=== PATIENT | female | born 1995 | race Caucasian/White ===

== ENCOUNTER 2021-12-25 09:24 | Emergency (ER) | payer BC ==
[2021-12-25] MEDS ORDERED: Ondansetron 4 MG/2 ML SDV IVPUSH ONE (10:23)
[2021-12-25] MEDS ORDERED: Sodium Chloride 0.9% 10 ML Syringe FLUSH PRN (10:23)
[2021-12-25] MEDS ORDERED: Sodium Chloride 0.9% 1,000 ML IV SCH (10:30)
== END 2021-12-25 12:45 | disposition home or self-care (01) ==
LOC: JD.ED 09:24
DX: O98.513 Other viral diseases complicating pregnancy, third trimester (principal); U07.1 COVID-19; Z3A.35 35 weeks gestation of pregnancy
CPT/HCPCS: 36415; 80053; 85025; 85379; 86140; 96374; 99284; J2405; J7030

== ENCOUNTER 2022-01-06 22:35 | Observation (INO) | payer BC | END 2022-01-06 23:45 | disposition home or self-care (01) | LOC: JD.OB 22:35 | PROVIDERS: ADMIT Obstetrics & Gynecology; ATTEND Obstetrics & Gynecology | DX: O47.1 False labor at or after 37 completed weeks of gestation (principal); O99.613 Diseases of the digestive system complicating pregnancy, third trimester; Z3A.30 30 weeks gestation of pregnancy | CPT/HCPCS: 59025; 84112 ==

== ENCOUNTER 2022-01-23 06:32 | Inpatient (IN) | payer BC ==
[~2022-01-23 06:32] MED LIST: Bupivacaine 0.25% 10 ML SDV ONE
[2022-01-23] MEDS ORDERED: Nalbuphine 10 MG/1 ML Vial IVPUSH PRN (07:09)
[2022-01-23] MEDS ORDERED: Ondansetron 4 MG/2 ML SDV IVPUSH PRN (07:09)
[2022-01-23] MEDS ORDERED: Sodium Chloride 0.9% 10 ML Syringe FLUSH PRN (07:09)
[2022-01-23] MEDS ORDERED: Acetaminophen 325 MG Tab PO PRN (07:09)
[2022-01-23] MEDS ORDERED: Oxytocin/Lactated Ringers 10 UNIT/1,000 ML BAG IV SCH ×2 (07:15)
[2022-01-23] MEDS: Lactated Ringers 1,000 ML IV SCH ×3 (08:11→14:01)
[2022-01-23] MEDS ORDERED: Sodium Chloride 0.9% 10 ML Syringe FLUSH SCH (09:00)
[2022-01-23] MEDS ORDERED: ePHEDrine 50 MG/ML SDV IVPUSH PRN (09:44)
[2022-01-23] MEDS ORDERED: fentaNYL 100 MCG/2 ML SDV EPIDUR PRN (09:44)
[2022-01-23] MEDS ORDERED: diphenhydrAMINE 50 MG/ML SDV IVPUSH PRN (09:44)
[2022-01-23] MEDS ORDERED: Bupivacaine/fentaNYL/NS 100 ML Bag EPIDUR PRN (09:44)
[2022-01-23] MEDS ORDERED: fentaNYL 100 MCG/2 ML SDV ONE (09:54)
[2022-01-23] MEDS ORDERED: Witch Hazel Medicated Pads 40/Jar TOP PRN (16:42)
[2022-01-23] MEDS ORDERED: Benzocaine/Menthol 20%-0.5% Spray 78 GM Cannister TOP PRN (16:42)
[2022-01-23] MEDS ORDERED: Docusate Sodium 100 MG Cap PO PRN (16:42)
[2022-01-23] MEDS: Acetaminophen 325 MG Tab PO PRN (19:26)
[2022-01-23] MEDS: Ibuprofen 600 MG Tab PO PRN (21:37)
[2022-01-24] MEDS: Acetaminophen 325 MG Tab PO PRN ×2 (02:22→10:14)
[2022-01-24] MEDS: Ibuprofen 600 MG Tab PO PRN ×2 (06:09→14:01)
[2022-01-24] MEDS ORDERED: Measles, Mumps & Rubella Vaccine 0.5 ML SDV SUBCUT ONE (16:00)
== END 2022-01-24 17:10 | disposition home or self-care (01) | DRG 560 ==
LOC: JD.OB 06:32 → OBSVTOIN 15:42 → JD.OB 15:43
PROVIDERS: ADMIT Obstetrics & Gynecology; ATTEND Obstetrics & Gynecology
PROC: 10E0XZZ Delivery of Products of Conception, External Approach (ICD-10-PCS; principal; 2022-01-23)
PROC: 10907ZC Drainage of Amniotic Fluid, Therapeutic from Products of Conception, Via Natural or Artificial Opening (ICD-10-PCS; 2022-01-23)
PROC: 3E0R3BZ Introduction of Anesthetic Agent into Spinal Canal, Percutaneous Approach (ICD-10-PCS; 2022-01-23)
PROC: 00HU33Z Insertion of Infusion Device into Spinal Canal, Percutaneous Approach (ICD-10-PCS; 2022-01-23)
DX: O99.214 Obesity complicating childbirth (principal); O69.81X0 Labor and delivery complicated by cord around neck, without compression, not applicable or unspecified; Z3A.39 39 weeks gestation of pregnancy; Z37.0 Single live birth; Z86.16 Personal history of COVID-19; E66.9 Obesity, unspecified; O98.32 Other infections with a predominantly sexual mode of transmission complicating childbirth
CPT/HCPCS: 36415; 51702; 59025; 59409; 85027; 86850; 86900; 86901; 90471; 90707; A9270-GY; J2590; J3010; J3490; J7120

== ENCOUNTER 2022-04-12 20:34 | Observation (INO) | payer BC ==
[2022-04-12] MEDS ORDERED: Ketorolac 15 MG/ML SDV IM ONE (21:42)
[2022-04-12] MEDS ORDERED: Iopamidol 612 MG/ML 100 ML Bottle IVPUSH ONE (22:13)
[2022-04-12] MEDS ORDERED: Sodium Chloride 0.9% 10 ML Syringe FLUSH ONE (22:13)
[2022-04-12] MEDS ORDERED: Piperacillin/Tazobactam 4.5 GM in Sodium Chloride 0.9% 100 ML IV ONE (23:30)
[2022-04-12] MEDS: Sodium Chloride 0.9% 1,000 ML IV SCH (23:50)
[2022-04-13] MEDS ORDERED: Morphine 4 MG/ML Syringe IVPUSH PRN (01:00)
[2022-04-13] MEDS ORDERED: Ondansetron 4 MG/2 ML SDV IVPUSH PRN ×2 (01:01→07:29)
[2022-04-13] MEDS ORDERED: Bupivacaine 0.5%/EPINEPHrine 1:200,000 50 ML MDV ONE (05:54)
[2022-04-13] MEDS ORDERED: Lidocaine 1% 5 ML VIAL ONE (06:42)
[2022-04-13] MEDS ORDERED: Succinylcholine 200 MG/10 ML MDV ONE (06:42)
[2022-04-13] MEDS ORDERED: Rocuronium 50 MG/5 ML Vial ONE (06:42)
[2022-04-13] MEDS ORDERED: fentaNYL 100 MCG/2 ML SDV ONE (06:43)
[2022-04-13] MEDS ORDERED: Propofol 200 MG/20 ML SDV ONE (06:43)
[2022-04-13] MEDS ORDERED: Midazolam 1 MG/ML 2 ML SDV ONE (06:43)
[2022-04-13] MEDS ORDERED: cefOXitin 2 GM in Premix Bag 1 BAG IV ONE (06:45)
[2022-04-13] MEDS ORDERED: fentaNYL 100 MCG/2 ML SDV IVPUSH PRN (07:29)
[2022-04-13] MEDS ORDERED: HYDROmorphone 0.5 MG/0.5 ML Syringe IVPUSH PRN (07:29)
[2022-04-13] MEDS ORDERED: Dexamethasone 4 MG/ML 5 ML MDV ONE (07:32)
[2022-04-13] MEDS ORDERED: ePHEDrine 50 MG/ML SDV ONE (07:32)
[2022-04-13] MEDS ORDERED: Ondansetron 4 MG/2 ML SDV ONE (07:32)
[2022-04-13] MEDS ORDERED: Neostigmine Methylsulfate 10 MG/10 ML MDV ONE (07:36)
[2022-04-13] MEDS: Sodium Chloride 0.9% 1,000 ML IV SCH (12:23)
[2022-04-13] MEDS ORDERED: Acetaminophen/HYDROcodone 325-5 MG Tab PO PRN (12:43)
== END 2022-04-13 18:33 | disposition home or self-care (01) ==
LOC: JD.ED 20:34 → JD.MS 23:58
PROVIDERS: ADMIT Surgery; ATTEND Surgery
DX: K35.30 Acute appendicitis with localized peritonitis, without perforation or gangrene (principal); N80.5 Endometriosis of intestine; K38.8 Other specified diseases of appendix; K21.9 Gastro-esophageal reflux disease without esophagitis; H54.7 Unspecified visual loss; E66.9 Obesity, unspecified; Z68.30 Body mass index [BMI] 30.0-30.9, adult; Z79.899 Other long term (current) drug therapy
CPT/HCPCS: 44970; 74177; 96365; 96372; 96375; 99285; A9270; G0378; J0330; J0694; J1100; J1170; J1885; J2250; J2270; J2405; J2543; J2704; J2710; J3010; J3490; J7030; Q9967; 00840

== ENCOUNTER 2022-05-01 12:17 | Emergency (ER) | payer BC ==
[2022-05-01] MEDS ORDERED: Ondansetron 4 MG/2 ML SDV IVPUSH ONE (13:22)
[2022-05-01] MEDS ORDERED: HYDROmorphone 1 MG/ML Syringe IVPUSH STA (13:22)
[2022-05-01] MEDS ORDERED: Sodium Chloride 0.9% 1,000 ML IV SCH (13:30)
[2022-05-01] MEDS: Sodium Chloride 0.9% 10 ML Syringe FLUSH PRN ×2 (13:33→16:21)
[2022-05-01 14:05] LABS: ESTIMATED GFR > 60 mL/min (>60)
[2022-05-01] MEDS ORDERED: Iopamidol 612 MG/ML 100 ML Bottle IVPUSH ONE (14:26)
[2022-05-01] MEDS ORDERED: Sodium Chloride 0.9% 10 ML Syringe FLUSH PRN (14:26)
[2022-05-01] MEDS ORDERED: Diatrizoate Meglumine/Diatrizoate Sodium 37% 120 ML Bottle PO ONE (14:26)
[2022-05-01] MEDS ORDERED: HYDROmorphone 0.5 MG/0.5 ML Syringe IVPUSH ONE (15:47)
== END 2022-05-01 17:13 | disposition home or self-care (01) ==
LOC: JD.ED 12:17
DX: R10.84 Generalized abdominal pain (principal); K21.9 Gastro-esophageal reflux disease without esophagitis; E66.9 Obesity, unspecified; Z68.29 Body mass index [BMI] 29.0-29.9, adult; Z86.16 Personal history of COVID-19
CPT/HCPCS: 36415; 74177; 80053; 81001; 81025; 83690; 85025; 86140; 96361; 96374; 96375; 96376; 99284; J1170; J2405; J3490; J7030; Q9963; Q9967

== ENCOUNTER 2022-05-07 17:05 | Emergency (ER) | payer BC ==
[2022-05-07] MEDS ORDERED: Ketorolac 15 MG/ML SDV IM ONE (17:56)
== END 2022-05-07 18:50 | disposition home or self-care (01) ==
LOC: JD.ED 17:05
DX: R10.32 Left lower quadrant pain (principal); E66.9 Obesity, unspecified; Z68.29 Body mass index [BMI] 29.0-29.9, adult; Z86.16 Personal history of COVID-19
CPT/HCPCS: 36415; 80053; 81001; 83605; 83690; 85025; 85610; 99282; 99284

== ENCOUNTER 2022-05-30 10:00 | Day surgery (SDC) | payer BC ==
[~2022-05-30 10:00] MED LIST changes: -Bupivacaine 0.25% 10 ML SDV ONE; +Dexamethasone 4 MG/ML 5 ML MDV ONE; +Lactated Ringers 1,000 ML IV SCH; +Lidocaine 1% 5 ML VIAL ONE; +Lidocaine 1%/Sod Bicarbonate in NS 8.4% 1 ML Syringe IDERM PRN; +Scopolamine 1.5 MG Transdermal Patch TOP SCH; +Sodium Chloride 0.9% 10 ML Syringe FLUSH PRN; +Sodium Chloride 0.9% 10 ML Syringe FLUSH SCH
[2022-05-30] MEDS ORDERED: Sodium Chloride 0.9% 50 ML SDV ONE (11:05)
[2022-05-30] MEDS ORDERED: Lidocaine 1% with EPINEPHrine 1:100,000 20 ML MDV ONE (11:05)
[2022-05-30] MEDS ORDERED: Bupivacaine 0.5% 30 ML SDV ONE (11:05)
[2022-05-30] MEDS ORDERED: fentaNYL 250 MCG/5 ML SDV ONE (11:31)
[2022-05-30] MEDS ORDERED: Midazolam 1 MG/ML 2 ML SDV ONE (11:31)
[2022-05-30] MEDS ORDERED: Propofol 200 MG/20 ML SDV ONE (11:31)
[2022-05-30] MEDS ORDERED: HYDROmorphone 0.5 MG/0.5 ML Syringe ONE ×2 (11:34→13:11)
[2022-05-30] MEDS ORDERED: ceFAZolin 2 GM Vial ONE (11:47)
[2022-05-30] MEDS ORDERED: ePHEDrine 50 MG/ML SDV ONE (12:04)
[2022-05-30] MEDS ORDERED: Neostigmine Methylsulfate 10 MG/10 ML MDV ONE (13:14)
[2022-05-30] MEDS ORDERED: Ondansetron 4 MG/2 ML SDV ONE (13:15)
[2022-05-30] MEDS ORDERED: Lidocaine 1% PF 2 ML SDV ONE (13:15)
[2022-05-30] MEDS ORDERED: Ketorolac 30 MG/ML SDV ONE (13:25)
[2022-05-30] MEDS ORDERED: fentaNYL 100 MCG/2 ML SDV IVPUSH PRN (13:38)
[2022-05-30] MEDS ORDERED: HYDROmorphone 0.5 MG/0.5 ML Syringe IVPUSH PRN ×2 (13:38→13:41)
[2022-05-30] MEDS ORDERED: Ondansetron 4 MG/2 ML SDV IVPUSH PRN (13:38)
[2022-05-30] MEDS ORDERED: Acetaminophen/oxyCODONE 325-5 MG Tab PO ONE ×2 (14:45→15:55)
[2022-05-30] MEDS ORDERED: oxyCODONE 5 MG Tab PO ONE (15:44)
== END 2022-05-30 16:22 | disposition home or self-care (01) ==
LOC: JD.SDS 10:00
PROVIDERS: ATTEND Obstetrics & Gynecology
DX: N83.299 Other ovarian cyst, unspecified side (principal); N83.8 Other noninflammatory disorders of ovary, fallopian tube and broad ligament; N80.9 Endometriosis, unspecified; F32.A Depression, unspecified; E66.9 Obesity, unspecified; Z79.891 Long term (current) use of opiate analgesic; Z90.49 Acquired absence of other specified parts of digestive tract; Z87.440 Personal history of urinary (tract) infections; Z79.83 Long term (current) use of bisphosphonates; Z68.30 Body mass index [BMI] 30.0-30.9, adult
CPT/HCPCS: 36415; 58552; 81003; 81025; 86850; 86900; 86901; A9270; J0690; J1100; J1170; J1885; J2250; J2405; J2704; J2710; J3010; J3490; J7120; 00944

== ENCOUNTER 2022-06-06 23:06 | Emergency (ER) | payer BC ==
[2022-06-06] MEDS ORDERED: Ondansetron 4 MG/2 ML SDV IVPUSH ONE (23:42)
[2022-06-06] MEDS ORDERED: HYDROmorphone 0.5 MG/0.5 ML Syringe IVPUSH ONE (23:42)
[2022-06-06] MEDS ORDERED: Sodium Chloride 0.9% 1,000 ML IV SCH (23:45)
[2022-06-06] MEDS ORDERED: Iopamidol 612 MG/ML 50 ML SDV IVPUSH ONE (23:59)
[2022-06-06] MEDS ORDERED: Sodium Chloride 0.9% 10 ML Syringe FLUSH PRN (23:59)
[2022-06-06] MEDS ORDERED: Iopamidol 612 MG/ML 100 ML Bottle IVPUSH ONE (23:59)
== END 2022-06-07 02:07 | disposition home or self-care (01) ==
LOC: JD.ED 23:06
DX: G89.18 Other acute postprocedural pain (principal); Z88.5 Allergy status to narcotic agent; Z79.899 Other long term (current) drug therapy; Z86.16 Personal history of COVID-19; Z90.49 Acquired absence of other specified parts of digestive tract; Z90.710 Acquired absence of both cervix and uterus
CPT/HCPCS: 36415; 74177; 80053; 85007; 85027; 96361; 96374; 96375; 99284; J1170; J2405; J3490; J7030; Q9967

== ENCOUNTER 2023-01-20 21:21 | Emergency (ER) | payer BC | END 2023-01-21 00:45 | disposition home or self-care (01) | LOC: JD.ED 21:21 | DX: K59.00 Constipation, unspecified (principal); E66.9 Obesity, unspecified; Z68.28 Body mass index [BMI] 28.0-28.9, adult; Z88.8 Allergy status to other drugs, medicaments and biological substances; Z86.16 Personal history of COVID-19 | CPT/HCPCS: 36415; 74019; 74019-26; 80053; 81001; 85025; 86140; 99284 ==

== ENCOUNTER 2023-02-26 12:13 | Emergency (ER) | payer BC, MEDICAID, OTHER ==
[2023-02-26] MEDS ORDERED: Sodium Chloride 0.9% 10 ML Syringe FLUSH PRN (13:03)
[2023-02-26] MEDS ORDERED: Metoclopramide 10 MG/2 ML SDV IVPUSH ONE (13:07)
[2023-02-26] MEDS ORDERED: diphenhydrAMINE 50 MG/ML SDV IVPUSH ONE (13:07)
[2023-02-26] MEDS ORDERED: Ketorolac 30 MG/ML SDV IVPUSH ONE (13:07)
[2023-02-26 13:51] LABS: ESTIMATED GFR 104 mL/min (>60)
== END 2023-02-26 14:55 | disposition home or self-care (01) ==
LOC: JD.ED 12:13
DX: G43.909 Migraine, unspecified, not intractable, without status migrainosus (principal); R07.89 Other chest pain; E66.9 Obesity, unspecified; Z68.28 Body mass index [BMI] 28.0-28.9, adult; Z88.6 Allergy status to analgesic agent; Z79.899 Other long term (current) drug therapy; Z86.16 Personal history of COVID-19; Z90.49 Acquired absence of other specified parts of digestive tract; Z90.710 Acquired absence of both cervix and uterus
CPT/HCPCS: 36415; 70450; 71045; 80053; 84484; 85025; 93005; 96374; 96375; 99285; J1200; J1885; J2765; J3490; 93010; 99284

== ENCOUNTER 2024-03-13 01:23 | Emergency (ER) | payer BC ==
[2024-03-13] MEDS: Sodium Chloride 0.9% 1,000 ML IV ONE (02:08)
[2024-03-13 02:18] LABS: APPEARANCE,URINE SLT CLOUDY (Clear); BASOPHILS PERCENT AUTO 0.2 % (0.0-1.0); BILIRUBIN,URINE NEGATIVE (Negative); COLOR,URINE YELLOW (Yellow); EOSINOPHILS ABSOLUTE AUTO 0.2 K/mm3 (0.0-0.4); GLUCOSE,URINE NEGATIVE (Negative); HEMATOCRIT 37.1 % (37.0-47.0); HEMOGLOBIN 12.6 gm/dl (12.0-16.0); IMMATURE GRAN ABSOLUTE AUTO 0.02 K/mm3 (0.00-0.05); IMMATURE GRAN PERCENT AUTO 0.2 % (0.0-0.4); KETONES,URINE TRACE (Negative); LEUKOCYTE ESTERASE,URINE NEGATIVE (Negative); LYMPHOCYTES ABSOLUTE AUTO 3.2 K/mm3 (1.0-4.8); LYMPHOCYTES PERCENT AUTO 39.6 % (24.0-44.0); MEAN CORPUSCULAR HEMOGLOBIN 30.8 pg (28.0-32.0); MEAN CORPUSCULAR VOLUME 90.7 fl (83.0-99.0); MEAN PLATELET VOLUME 10.6 fl (9.4-12.3); MONOCYTES ABSOLUTE AUTO 0.4 K/mm3 (0.0-0.8); MONOCYTES PERCENT AUTO 5.2 % (0.0-8.0); NEUTROPHILS ABSOLUTE AUTO 4.3 K/mm3 (1.8-7.7); NEUTROPHILS PERCENT AUTO 52.8 % (41.0-71.0); NITRITE,URINE NEGATIVE (Negative); OCCULT BLOOD,URINE NEGATIVE (Negative); PH,URINE 5.5 (5.0-8.0); PLATELET COUNT,PLT 224 K/mm3 (150-400); PROTEIN,URINE TRACE (Negative); RED BLOOD CELL COUNT 4.09 M/mm3 (4.10-5.30); UROBILINOGEN,URINE 0.2 (0.2-1.0); WHITE BLOOD CELL COUNT,WBC 8.11 K/mm3 (3.9-11.3)
[2024-03-13 02:39] LABS: BACTERIA,URINE FEW /hpf (FEW); MUCUS,URINE MODERATE /hpf (FEW); RBC,URINE 0-5 /hpf (0-5); WBC,URINE 0-5 /hpf (0-5)
[2024-03-13 02:50] LABS: ALBUMIN 3.9 g/dl (3.4-5.0); ANION GAP 11.4 (5-15); BILIRUBIN TOTAL 0.7 mg/dL (0.2-1.0); CALCIUM 9.1 mg/dL (8.5-10.1); EST CRCL DRUG DOSING (CG) 72.97 mL/min; POTASSIUM,K 3.4 mEq/L (3.5-5.1); PROTEIN TOTAL,TP 7.8 g/dl (6.4-8.2); TSH 2.224 uIU/mL (0.358-3.74)
[2024-03-13] MEDS: Potassium Chloride 20 MEQ Tab.ER PO ONE (03:30)
[2024-03-13] MEDS: Metoclopramide 10 MG/2 ML SDV IVPUSH ONE (03:32)
[2024-03-13] MEDS: Ketorolac 30 MG/ML SDV IVPUSH ONE (03:35)
[2024-03-13] MEDS: Dexamethasone 10 MG/ML SDV IVPUSH ONE (03:36)
== END 2024-03-13 03:49 ==
LOC: JD.ED 01:23
DX: R51.9 Headache, unspecified (principal); E87.6 Hypokalemia; E66.9 Obesity, unspecified; Z91.018 Allergy to other foods; Z88.8 Allergy status to other drugs, medicaments and biological substances; Z86.19 Personal history of other infectious and parasitic diseases; Z86.16 Personal history of COVID-19; Z68.30 Body mass index [BMI] 30.0-30.9, adult
CPT/HCPCS: 36415; 80053; 81001; 83540; 83735; 84443; 84703; 85025; 96374; 96375; 99284-25; A9270-GY; J1100; J1885; J2765; J7030

== ENCOUNTER 2024-10-07 22:10 | Emergency (ER) | payer BC ==
[2024-10-07] MEDS: Ketorolac 30 MG/ML SDV IM ONE (23:13)
== END 2024-10-07 23:17 | disposition home or self-care (01) ==
LOC: JD.ED 22:10
DX: K02.9 Dental caries, unspecified (principal); E66.9 Obesity, unspecified; Z86.16 Personal history of COVID-19; Z90.49 Acquired absence of other specified parts of digestive tract; Z90.710 Acquired absence of both cervix and uterus; Z88.5 Allergy status to narcotic agent; Z91.018 Allergy to other foods; Z79.2 Long term (current) use of antibiotics; Z79.899 Other long term (current) drug therapy; Z68.28 Body mass index [BMI] 28.0-28.9, adult
CPT/HCPCS: 96372; 99282; J1885

== ENCOUNTER 2024-10-11 22:39 | Emergency (ER) | payer BC | END 2024-10-11 23:14 | disposition home or self-care (01) | LOC: JD.ED 22:39 | DX: K08.89 Other specified disorders of teeth and supporting structures (principal); E66.9 Obesity, unspecified; Z86.16 Personal history of COVID-19; Z90.49 Acquired absence of other specified parts of digestive tract; Z90.710 Acquired absence of both cervix and uterus; Z88.5 Allergy status to narcotic agent; Z91.018 Allergy to other foods; Z79.2 Long term (current) use of antibiotics; Z79.899 Other long term (current) drug therapy; Z68.29 Body mass index [BMI] 29.0-29.9, adult | CPT/HCPCS: 99282 ==

== ENCOUNTER 2024-11-19 21:25 | Emergency (ER) | payer BC ==
[2024-11-19] MEDS: Alum Hydrox/Mag Hydrox/Simeth 30 ML, Lidocaine 2% 15 ML PO ONE (22:46)
[2024-11-19] MEDS: Famotidine 20 MG Tab PO ONE (22:47)
[2024-11-19] MEDS: Sodium Chloride 0.9% 10 ML Syringe FLUSH PRN (22:48)
[2024-11-19 22:53] LABS: BASOPHILS PERCENT AUTO 0.4 % (0.0-1.0); EOSINOPHILS ABSOLUTE AUTO 0.1 K/mm3 (0.0-0.4); EOSINOPHILS PERCENT AUTO 1.2 % (0.0-6.0); HEMATOCRIT 37.9 % (37.0-47.0); HEMOGLOBIN 12.6 gm/dl (12.0-16.0); IMMATURE GRAN ABSOLUTE AUTO 0.02 K/mm3 (0.00-0.05); IMMATURE GRAN PERCENT AUTO 0.2 % (0.0-0.4); LYMPHOCYTES ABSOLUTE AUTO 2.2 K/mm3 (1.0-4.8); MEAN CORPUSCULAR HEMOGLOBIN 29.9 pg (28.0-32.0); MEAN CORPUSCULAR HGB CONC 33.2 g/dl (32.0-36.0); MEAN PLATELET VOLUME 10.7 fl (9.4-12.3); MONOCYTES ABSOLUTE AUTO 0.4 K/mm3 (0.0-0.8); MONOCYTES PERCENT AUTO 4.8 % (0.0-8.0); NEUTROPHILS ABSOLUTE AUTO 5.6 K/mm3 (1.8-7.7); NEUTROPHILS PERCENT AUTO 67.4 % (41.0-71.0); PLATELET COUNT,PLT 216 K/mm3 (150-400); RED BLOOD CELL COUNT 4.21 M/mm3 (4.10-5.30); WHITE BLOOD CELL COUNT,WBC 8.35 K/mm3 (3.9-11.3)
[2024-11-19 23:17] LABS: ALANINE AMINOTRANSFERASE,ALT 21 U/L (14-59); ALKALINE PHOSPHATASE 130 U/L (46-116); ANION GAP 11.7 (5-15); ASPARTATE AMNIOTRANSFERASE,AST 21 U/L (15-37); BILIRUBIN TOTAL 0.8 mg/dL (0.2-1.0); BLOOD UREA NITROGEN,BUN 15 mg/dL (7-18); CALCIUM 9.1 mg/dL (8.5-10.1); CARBON DIOXIDE,CO2 29 mEq/L (21-32); CHLORIDE,CL 102 mEq/L (98-107); EST CRCL DRUG DOSING (CG) 72.97 mL/min; ESTIMATED GFR 79 mL/min (>60); GLUCOSE RANDOM 92 mg/dL (70-99); LIPASE 50 U/L (16-77); POTASSIUM,K 3.7 mEq/L (3.5-5.1); SODIUM,NA 139 mEq/L (136-145)
[2024-11-19 23:19] LABS: TROPONIN I HIGH SENSITIVITY < 4 pg/mL (<=51)
== END 2024-11-20 00:37 | disposition home or self-care (01) ==
LOC: JD.ED 21:25
DX: R07.89 Other chest pain (principal); E66.9 Obesity, unspecified; Z86.16 Personal history of COVID-19; Z79.899 Other long term (current) drug therapy; Z88.5 Allergy status to narcotic agent; Z91.048 Other nonmedicinal substance allergy status; Z68.30 Body mass index [BMI] 30.0-30.9, adult
CPT/HCPCS: 36415; 71045; 80053; 83690; 84484; 84703; 85025; 93005; 99285; A9270; 93010; 99284